=== PATIENT | female | born 1955 | race Caucasian/White ===

== ENCOUNTER 2021-04-25 10:19 | Emergency (ER) | payer MEDICARE ==
[~2021-04-25] VITALS: Ht 160 cm; Wt 81.6 kg
[~2021-04-25 10:19] MED LIST: AMLO10TA PO; BENA20TA72 PO
[2021-04-25 10:45] LABS: BILIRUBIN,URINE NEGATIVE (NEGATIVE); CLARITY,URINE CLOUDY; COLOR,URINE DARK YELLOW; GLUCOSE, URINE (UA) NEGATIVE (NEGATIVE); KETONES,URINE NEGATIVE (NEGATIVE); LEUKOCYTE ESTERASE ,URINE 2+ (NEGATIVE); NITRITE,URINE POSITIVE (NEGATIVE); PROTEIN,URINE NEGATIVE (NEGATIVE)
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
[2021-04-25 10:53] LABS: BACTERIA,URINE MODERATE /HPF; WBC,URINE 50-100 /HPF
[2021-04-25 10:57] LABS: AMPHETAMINE SCREEN, URINE NEGATIVE (NEGATIVE); BARBITURATE SCREEN URINE NEGATIVE (NEGATIVE); BENZODIAZEPINES SCREEN URINE NEGATIVE (NEGATIVE); CANNABINOID SCREEN, URINE NEGATIVE (NEGATIVE); COCAINE SCREEN URINE NEGATIVE (NEGATIVE); METHADONE STAT NEGATIVE (NEGATIVE); METHAMPHETAMINE SCREEN URINE S NEGATIVE (NEGATIVE); OPIATE SCREEN URINE NEGATIVE (NEGATIVE); OXYCODONE STAT NEGATIVE (NEGATIVE); PROPOXYPHENE STAT NEGATIVE (NEGATIVE); TRICYCLIC ANTIDEPRESSANTS SCRE POSITIVE (NEGATIVE)
[2021-04-25] MEDS ORDERED: ALPRAZolam 0.5 MG (XANAX) TAB PO SCH (11:00)
[2021-04-25] MEDS ORDERED: cefTRIAXone 1,000 MG VIAL IM ONE (11:00)
[2021-04-25] MEDS ORDERED: LIDOCAINE 1% INJ 20 ML 20 ML VIAL INJ ONE (11:00)
[2021-04-25 11:04] LABS: BASOPHILS # (AUTO) 0.1 10^3/uL (0.0-0.1); BASOPHILS % (AUTO) 1 % (0-10); EOSINOPHILS # (AUTO) 0.1 10^3/uL (0.0-0.3); EOSINOPHILS % (AUTO) 1 % (0-10); HEMATOCRIT 41 % (35-52); HEMOGLOBIN 13.6 g/dL (11.5-16.0); LYMPHOCYTES # (AUTO) 2.5 10^3/uL (1.0-4.0); LYMPHOCYTES % (AUTO) 36 % (12-44); MEAN CORPUSCULAR HEMOGLOBIN 30 pg (25-34); MEAN CORPUSCULAR HGB CONC 33 g/dL (32-36); MEAN CORPUSCULAR VOLUME 90 fL (80-99); MEAN PLATELET VOLUME 10.2 fL (9.0-12.2); MONOCYTES # (AUTO) 0.3 10^3/uL (0.0-1.0); MONOCYTES % (AUTO) 4 % (0-12); NEUTROPHILS # (AUTO) 3.8 10^3/uL (1.8-7.8); NEUTROPHILS % (AUTO) 57 % (42-75); PLATELET COUNT 374 10^3/uL (130-400); WHITE BLOOD COUNT 6.8 10^3/uL (4.3-11.0)
[2021-04-25 11:14] LABS: ALBUMIN 3.9 GM/DL (3.2-4.5); CHLORIDE 107 MMOL/L (98-107); POTASSIUM 3.6 MMOL/L (3.6-5.0); SODIUM 140 MMOL/L (135-145)
[2021-04-25 11:15] LABS: CALCIUM 9.4 MG/DL (8.5-10.1)
[2021-04-25 11:16] LABS: GLUCOSE 94 MG/DL (70-105); TOTAL PROTEIN 7.3 GM/DL (6.4-8.2)
[2021-04-25 11:17] LABS: CARBON DIOXIDE 22 MMOL/L (21-32)
[2021-04-25 11:18] LABS: BILIRUBIN,TOTAL 1.9 MG/DL (0.1-1.0)
[2021-04-25 11:20] LABS: ALKALINE PHOSPHATASE 64 U/L (40-136); CREATININE SERUM 0.77 MG/DL (0.60-1.30); GFR ESTIMATED 75
[2021-04-25 11:21] LABS: BUN/CREATININE RATIO 19
[2021-04-25 11:23] LABS: ALANINE AMINOTRANSFERASE 18 U/L (0-55)
--- NOTE | 2021-04-25 11:55 | Diagnostic Imaging Report ---
PROCEDURE: CT head without contrast. TECHNIQUE: Multiple contiguous axial images were obtained through the brain without the use of intravenous contrast. Auto Exposure Controls were utilized during the CT exam to meet ALARA standards for radiation dose reduction. INDICATION: Altered mental status. Compared with study 07/11/2013 FINDINGS: There is no intracranial hemorrhage, hydrocephalus, edema, mass, mass effect or evidence for an elevation of the intracerebral pressures. There is some new mild senescent cerebral cortical atrophy as well as some increased chronic appearing periventricular white matter disease as well as intracranial atherosclerotic vascular calcifications. There is membrane thickening in the bilateral ethmoid air cells and bilateral maxillary sinuses, the left maxillary sinus containing a shallow low-density air-fluid level. The mastoid air cells and middle ear cavities clear. The right frontal sinuses aplastic, the left frontal small but clear. IMPRESSION: 1. Some increased chronic senescent changes with likely mild cerebral cortical atrophy and periventricular white matter small vessel disease however no hemorrhage, edema or acute-appearing intracerebral pathology. 2. Findings of paranasal sinusitis as described. Dictated by: Dictated on workstation # [id number]
[2021-04-25] MEDS ORDERED: QUEtiapine 25 MG (SEROquel) TAB IMMEDIATE RELEASE PO SCH (12:00)
[2021-04-25] MEDS ORDERED: LORazepam INJ 2 MG/ML (ATIVAN) VIAL IM ONE (12:45)
[2021-04-25] MEDS ORDERED: diphenhydrAMINE 50 MG/ML INJ (BENADRYL) IM ONE (12:45)
[2021-04-25 14:10] VITALS: BP 137/68
== END 2021-04-25 14:10 | disposition short-term general hospital (02) ==
LOC: EDUNIT# 10:19 → ER 10:21
DX: F03.91 Unspecified dementia, unspecified severity, with behavioral disturbance (principal); N39.0 Urinary tract infection, site not specified; I10 Essential (primary) hypertension; Z20.822 Contact with and (suspected) exposure to COVID-19; Z79.899 Other long term (current) drug therapy
CPT/HCPCS: 70450; 80053; 80306; 81000; 85025; 87077; 87088; 87186; 87636; 93005; 99283; G0480; 36415; 80320